=== PATIENT | male | born 1955 | race Hispanic/Latino ===

== ENCOUNTER → 2019-03-05 | Outpatient (CLI) | payer BC | END | disposition home or self-care (01) | LOC: SHCH 15:10 | PROVIDERS: ATTEND Internal Medicine Cardiovascular Disease | DX: I10 Essential (primary) hypertension (principal); R06.09 Other forms of dyspnea; I87.2 Venous insufficiency (chronic) (peripheral) | CPT/HCPCS: 93970 ==

== ENCOUNTER → 2019-03-07 | Outpatient (CLI) | payer BC | END | disposition home or self-care (01) | LOC: SHCH 08:21 | PROVIDERS: ATTEND Internal Medicine Cardiovascular Disease | DX: I11.9 Hypertensive heart disease without heart failure (principal); I87.2 Venous insufficiency (chronic) (peripheral) | CPT/HCPCS: 93306 ==

== ENCOUNTER → 2022-10-05 | Outpatient (CLI) | payer BC | END | disposition home or self-care (01) | LOC: RESP 08:54 | PROVIDERS: ATTEND Internal Medicine Cardiovascular Disease | DX: R06.02 Shortness of breath (principal) | CPT/HCPCS: 94010 ==

== ENCOUNTER → 2022-10-06 | Outpatient (CLI) | payer BC | END | disposition home or self-care (01) | LOC: SHCH 13:19 | PROVIDERS: ATTEND Internal Medicine Cardiovascular Disease | DX: R06.02 Shortness of breath (principal); I10 Essential (primary) hypertension; E78.5 Hyperlipidemia, unspecified | CPT/HCPCS: 93306 ==

== ENCOUNTER → 2022-10-07 | Outpatient (CLI) | payer BC ==
[~2022-10-07] MED LIST: REGADENOSON 0.4 MG/5 ML PF SYG IVP ONE
== END | disposition home or self-care (01) ==
LOC: SHCH 08:19
PROVIDERS: ATTEND Internal Medicine Cardiovascular Disease
DX: R06.02 Shortness of breath (principal)
CPT/HCPCS: 78452; 96374; 93017; J2785; A9500 ×2

== ENCOUNTER 2025-02-10 07:22 | Day surgery (SDC) | payer BC, OTHER ==
[2025-02-07 14:39] LABS: IMMATURE GRANULOCYTE ABSOLUTE 0.02 K/uL (0-1); NUCLEATED RED BLOOD CELLS 0.0 % (0.0-0.19); PLATELET COUNT (AUTO) 222 K/uL (130-400); RED BLOOD CELL COUNT(AUTO) 3.93 MIL/uL (4.50-6.20); RED CELL DISTRIBUTION WIDTH 11.7 % (11.0-15.5); WHITE BLOOD COUNT (AUTO) 5.6 K/uL (4.8-10.8)
--- NOTE | 2025-02-07 14:46 | EKG ---
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
[2025-02-07 14:51] LABS: INR 1.08 (0.85-1.15)
[2025-02-07 14:54] LABS: ASPARTATE AMINOTRANSFERASE 26.0 U/L (10-37); CREATININE 0.9 mg/dL (0.5-1.3); GLOMERULAR FILTR. RATE CALC 94.0 mL/min (>90); GLUCOSE,RANDOM 102.0 mg/dL (70-105); SODIUM SERUM 131.0 mmol/L (136-145); TOTAL PROTEIN, SERUM 7.5 g/dL (6.0-8.3); UREA NITROGEN, BLOOD 13.0 mg/dL (7-18)
[2025-02-07 14:59] VITALS: BP 124/87; PULSE 77; RESP 18; TEMP 97.3
[~2025-02-10] VITALS: Ht 180.3 cm; Wt 106.0 kg
[2025-02-10] VITALS (15 sets, daily range): BP systolic 100–132; BP diastolic 62–82; PULSE 71–80; RESP 15–18; TEMP 97.4–98.1
[~2025-02-10 07:22] MED LIST changes: +AMOX1TAB16 PO; +ATOR40TA71 PO; +LEVO100C5 PO; +METF-446 PO; +OLME40TA18 PO; -REGADENOSON 0.4 MG/5 ML PF SYG IVP ONE; +TADA5TAB PO; +[UNRECOGNIZED DRUG - MIXTURE] TP
[2025-02-10] MEDS ORDERED: 0.9%NACL 1000ML 1,000 ML IV ONE (07:57)
[2025-02-10] MEDS ORDERED: LIDOCAINE 1%-EPI 1:100,000 20 ML VIAL ONE (08:43)
[2025-02-10] MEDS ORDERED: MIDAZOLAM HCL 1 MG/ML 2ML VIAL ONE (09:22)
[2025-02-10] MEDS ORDERED: GLYCOPYRROLATE 0.2 MG/ML 5 ML VIAL ONE (09:59)
--- NOTE | 2025-02-10 10:10 | OP ---
Operative Note: DATE OF PROCEDURE: 02/10/25 SURGEON: ALBERTO SOTO MD CV RN: [None.] ANESTHESIA: [General plus local.] PREOPERATIVE DIAGNOSIS: [Severe anal pain.] POSTOPERATIVE DIAGNOSIS: [Large posterior perianal abscess with inter sphincteric component.] SYNOPSIS: [Posterior perianal abscess with intersphincteric extension.] PROCEDURE: [Examination under anesthesia, Drainage of complex initial inter sphincteric abscess with perianal extension.] ESTIMATED BLOOD LOSS: [Minimal] INDICATIONS: [The patient presents to the office with severe anal pain and no clear source of worsening symptoms. Examination in the office was limited, he was started on NSAIDs and antibiotics with no improvement through the weekend. For these reasons he elected to undergo a exam under anesthesia and all other indicated procedures. Risks, recuperation and alternatives were explained in detail to the patient who granted consent.] DESCRIPTION OF PROCEDURE: [The patient was identified in the holding area transferred to the OR placed supine on the operative table. Venodyne boots were placed time-out conducted and IV antibiotics given. After general anesthesia was obtained was placed in lithotomy position with great care taken to pad all pressure points. Perineum was prepped and draped in the usual sterile fashion. Local anesthesia was injected and careful examination revealed the presence of a large posterior intersphincteric abscess extending to the perianal area. An anoscope was inserted the internal sphincter was opened posteriorly and extended towards the anal verge draining significant amount of purulent secretion. Area was washed out profusely with saline and Betadine and hemostasis noted to be excellent. No fistula tract was identified. At this point the wound was covered with sterile dressing, counts were done and correct, there were no complications, I was present and scrubbed for the entire case.] ALBERTO HINSON MD Feb 10, 2025 10:10
--- NOTE | 2025-02-10 11:24 | NUR ---
BOTH PT AND SPOUSE GIVEN VERBAL AND WRITTEN DISCHARGE INSTRUCTIONS. IV REMOVED SITE ASYMPTOMATIC.
== END 2025-02-10 11:32 | disposition home or self-care (01) ==
LOC: ENDO 07:22 → DAH 07:22 → ENDO 11:32
PROVIDERS: ATTEND Surgery
DX: K62.89 Other specified diseases of anus and rectum (principal); K61.0 Anal abscess; K64.1 Second degree hemorrhoids; I10 Essential (primary) hypertension; E78.5 Hyperlipidemia, unspecified; E03.9 Hypothyroidism, unspecified; Z86.2 Personal history of diseases of the blood and blood-forming organs and certain disorders involving the immune mechanism; Z79.890 Hormone replacement therapy
CPT/HCPCS: 80053; 85025; 85610; 85730; 36415; 93005; 46045; 82948; A4223 ×2; A4663; A4606; J3010; J3490 ×3; J7030; J0665 ×2; J2250; J2704; J2371; J0690 ×2; A4649 ×2; A4930; A4215; A4213; A4222; A4221; A4216